=== PATIENT | male | born 1980 | race American Indian/Alaskan Native ===

== ENCOUNTER 2017-12-22 22:41 | Emergency (ER) | payer BC ==
[2017-12-22 22:56] VITALS: BP 130/90; PULSE 87; TEMP 98.2; O2SAT 98
[2017-12-23] MEDS ORDERED: Naproxen 550 mg Tab PO STA (00:05)
[2017-12-23] MEDS ORDERED: Naproxen 550 mg Tab PO ONE (00:10)
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
[2017-12-23 01:13] VITALS: RESP 20
[2017-12-23] MEDS ORDERED: Morphine 4 MG/ML VIAL ONE (02:26)
== END 2017-12-23 00:35 | disposition home or self-care (01) ==
LOC: C.ER 22:41
DX: M54.12 Radiculopathy, cervical region (principal); S46.012A Strain of muscle(s) and tendon(s) of the rotator cuff of left shoulder, initial encounter; X58.XXXA Exposure to other specified factors, initial encounter; Y92.9 Unspecified place or not applicable